=== PATIENT | male | born 1960 | race Caucasian/White ===

== ENCOUNTER → 2016-10-10 | Outpatient (CLI) | payer OTHER | LOC: LAB 08:26 | DX: I25.10 Atherosclerotic heart disease of native coronary artery without angina pectoris (principal); R73.03 Prediabetes; E78.1 Pure hyperglyceridemia ==

== ENCOUNTER → 2017-12-09 | Outpatient (CLI) | payer OTHER ==
[~2017-12-09] VITALS: Ht 175.3 cm; Wt 136.4 kg
[2017-12-09 17:27] VITALS: BP 150/95
== END ==
LOC: AMSURD 16:14
DX: R39.198 Other difficulties with micturition (principal)

== ENCOUNTER → 2022-02-09 | Outpatient (CLI) | payer SELFPAY | LOC: RAD 02-07 15:38 | DX: K76.0 Fatty (change of) liver, not elsewhere classified (principal) ==

== ENCOUNTER → 2022-08-02 | Outpatient (CLI) | payer OTHER ==
[2022-08-02 09:38] LABS: BASO # 0.06 K/mm3 (0.02-0.10); EOS # 0.26 K/mm3 (0.04-0.40); EOS % 2.5 % (0.0-4.0); HEMATOCRIT 45.4 % (42.0-52.0); HEMOGLOBIN 15.4 g/dL (13.5-18.0); MEAN CELL VOLUME 91 fl (78-100); MEAN CORPUSCULAR HEMOGLOBIN 31 pg (27-31); MEAN CORPUSCULAR HGB CONC 34 g/dL (33-37); MEAN PLATELET VOLUME 9.9 fl (7.4-10.4); MONO # 0.93 K/mm3 (0.20-0.80); NEU # 7.14 K/mm3 (1.40-6.50); PLATELET COUNT 248 K/mm3 (130-400); RED BLOOD COUNT 5.01 M/mm3 (4.20-5.60); RED CELL DISTRIBUTION WIDTH 13.3 % (11.5-14.5); WHITE BLOOD COUNT 10.6 K/mm3 (4.8-10.8)
[2022-08-02 09:42] LABS: ALBUMIN 4.2 g/dL (3.4-4.8)
[2022-08-02 09:43] LABS: CALCIUM 9.4 mg/dL (8.3-10.5)
[2022-08-02 09:44] LABS: TOTAL PROTEIN 7.3 g/dL (6.2-8.1)
[2022-08-02 09:46] LABS: TOTAL BILIRUBIN 0.7 mg/dL (0.2-1.2)
== END ==
LOC: LAB 09:22
PROVIDERS: Family Medicine
DX: E78.5 Hyperlipidemia, unspecified (principal)